=== PATIENT | female | born 1985 | race Caucasian/White ===

== ENCOUNTER 2017-10-02 13:16 | Emergency (ER) | payer OTHER, SELFPAY ==
[2017-10-02 13:17] VITALS: BP 138/75; PULSE 113; RESP 16; TEMP 36.8; O2SAT 98; BMI 40.4
[2017-10-02] MEDS: Ketorolac 30 MG/ML Syringe IV (14:07)
[2017-10-02] MEDS: DiphenhydrAMINE 50 MG/ML Syringe 25 MG IV (14:07)
[2017-10-02] MEDS: Metoclopramide 10 MG/2 ML Vial IV (14:07)
[2017-10-02 14:21] LABS: Absolute Lymphocyte Count 1.85 X10^3/ul (0.83-4.51); Absolute Neutrophil Count 9.7 X10^3/uL (2.0-7.7); Basophil# 0.03 X10^3/uL; Basophil% 0.2 % (0-1); Differential Indicated SCAN CRITERIA MET; Eosinophil# 0.03 X10^3/uL; Eosinophils% 0.2 % (0-5); Hematocrit 37.3 % (37-47); Hemoglobin 12.2 g/dl (12.0-15.0); Lymphocyte # 1.85 X10^3/ul (4.0); Lymphocyte % 15.2 % (19-41); Mean Corp Hgb Conc 32.7 g/gl (32-36); Mean Corpuscular Hgb 28.4 pg (27.0-32.0); Mean Corpuscular Volume 86.7 fL (81-99); Mean Platelet Vol. 10.1 fl (6.2-12.0); Monocyte# 0.56 X10^3/uL; Monocyte% 4.6 % (0-10); Neutrophil # 9.72 X10^3/uL (2.7-7.7); Neutrophil % 79.6 % (47-70); POSITIVE COUNT NO; POSITIVE DIFFERENTIAL NO; POSITIVE MORPHOLOGY YES; Platelet Count 285 K/mm3 (150-450); RBC Distribution Width CV 12.8 % (11.6-14.6); White Blood Count 12.2 K/mm3 (4.4-11.0)
[2017-10-02 14:29] LABS: Anion Gap 13 (5-15); BUN 9 mg/dL (7-18); BUN/Creat Ratio 14.3 RATIO (10-20); Calcium,Total 9.3 mg/dL (8.5-10.1); Chloride 101 mmol/L (98-107); Creatinine, Serum 0.63 mg/dL (0.55-1.02); EST Glomerular Filtration Rate 118 mL/min (>60); Est Glom Filt Rate - Afr Amer 143 mL/min (>60); Estimated Creatinine Clearance 108.01 ml/min; Glucose 84 mg/dL (74-106); Potassium 3.7 mmol/L (3.5-5.1); Sodium Level 134 mmol/L (136-145)
[2017-10-02] MEDS: 0.9% Normal Saline 1,000 ML 150 ML IV (14:37)
[2017-10-02 14:48] LABS: Pregnancy, Serum, hCG Quali. POSITIVE Negative (0-9 Nonpreg)
--- NOTE | 2017-10-02 15:02 | US_ITS ---
STUDY: FIRST TRIMESTER OBSTETRICAL ULTRASOUND REASON FOR EXAM: Female, 32 years old. Left lower quadrant abdominal pain in a patient. LMP: Unknown. TECHNIQUE: Transabdominal and Transvaginal PRIOR ULTRASOUND: Prior comparison studies are not available for review at this time. FINDINGS: There is visualization of a single gestational sac in a normal intrauterine position. The gestational sac shape is within normal limits. There is no demonstrated yolk sac. There is visualization of the placenta. Placenta is anterior. There is visualization of a live embryo. The crown-rump length (CRL) measures 4.4, indicating an estimated gestational age (EGA) of 11 weeks, 2 days. There is demonstrated cardiac activity with a heart rate of 174 bpm. The estimated gestation age (EGA) by US is 11 weeks, 2 days. The estimated date of delivery (BELL) by US is April 21 2018. The uterus measures 12.1 x 7.2 x 7.8 cm. There is no demonstrated uterine fibroid. The cervix is closed. The right ovary measures 4.0 x 2.0 x 3.0 cm. There is no right ovarian cyst. There is no visualized right adnexal mass or complex lesion. The left ovary measures 3.7 x 5.2 x 2.3 cm. There is no left ovarian cyst. There is no visualized left adnexal mass or complex lesion. There is no fluid in the cul de sac. US/Transvaginal w/Preg US IMPRESSION: Single living intrauterine gestation with estimated gestational age by size of 11 weeks 2 days. Electronically Signed: Shandra Green MD at 16:19 EDT , Service support ,
[2017-10-02 16:10] VITALS: BP 122/65
[2017-10-02 16:19] LABS: Bacteria 0 SEEN /hpf (None Seen)
[2017-10-02 16:20] LABS: Color, Urine Yellow (Yellow); Glucose, Dipstick Normal (Normal); Leukocyte Esterase-Dipstick 100 /ul (Negative); Nitrite-Dipstick Negative (Negative); Occult Blood-Urine 25 /ul (Negative); Protein-Dipstick 30 mg/dl (Negative); Specific Gravity, Urine 1.025 (1.002-1.030); Urine Clarity Cloudy (Clear); Urine Urobilinogen 8 mg/dl (Normal)
[2017-10-02 16:24] LABS: Urine Bilirubin Dipstick 1 mg/dL (Negative)
[2017-10-02 16:25] LABS: Ketone-Dipstick 150 mg/dl (Negative)
--- NOTE | 2017-10-02 16:25 | ED.RN ---
URINE KETONE 150, MD AWARE.
[2017-10-02 16:32] LABS: Mucous, Urine 2+ /hpf (<or=2+); Squamous Epithelial Cells - UA 0-5 SEEN /hpf (5-10)
[2017-10-02 16:33] LABS: Hyaline Cast 0-5 SEEN /lpf (0-5)
[2017-10-02 16:35] LABS: White Blood Cells 0-5 SEEN /hpf (0-5)
[2017-10-02 16:36] LABS: Red Blood Cells-Urine 0-5 SEEN /hpf (0-5)
--- NOTE | 2017-10-02 16:38 | ED.VISSUMM ---
- ER Visit Summary Date of Service: 10/02/17 Chief Complaint: Nausea, vomiting, fever. History of Present Illness: The patient is a 32 F who developed fever and sore throat last weekend. Sore throat resolved. Patient states she then developed blisters in the perineal area. For the past weeks she has had some intermittent vomiting but that worsened this morning. She is complaining of a headache since 4 PM yesterday afternoon at the base of her skull. Patient states she has not really eaten anything in the past 6 days. She is trying to push fluids and keep those down. Past history significant for migraines as a kid. She has had prior cholecystectomy. She is unsure of her last menstrual cycle stating that she has very irregular periods. Physical Examination: Blood pressure is 138/75, temperature 98.3, heart rate 113, respiratory rate 16, pulse ox 98% on room air. Head and neck examination reveals TMs to be clear bilaterally. Posterior pharynx exam is normal. Neck is supple with no lymphadenopathy. She has no meningismus. Heart is tachycardic and regular. Lung sounds are clear. Abdomen is soft with tenderness in epigastric region as well as the left lower quadrant. There is no guarding or rebound. Hypoactive bowel sounds are noted throughout. examination reveals ulcerations on the medial labia majora. I do not see any blister lesions. Test Results: CBC was a white count of 12.2 with 79% neutrophils. Chemistry studies are significant for sodium 134 and a bicarb of 20. Urinalysis returns 150 ketones but no sign of infection. Her test returned positive. Quant is then added and is found to be 70,813. Pelvic ultrasound is performed that shows a single live intrauterine 11 weeks 2 days. heart rate is noted at 174. Emergency Department Course and Treatment: HSV culture was sent from the labial lesions. Patient was initially treated with Toradol, Benadryl, Reglan, and IV fluids. Repeat evaluation she reported her headache was significantly improved, but on further repeat eval stated her headache was starting to return. She is given a dose of Tylenol. Patient was discussed with Dr. Tamez. Patient will be treated with a course of acyclovir. Should be given Zofran for home. Repeat vital signs include a heart rate of 84. Treatment Plan: [] Disposition: Discharge Impression: 1. Labial lesions with concern for herpes 2. First trimester 3. Cephalgia, improved 4. Vomiting, improved This note was generated with [employer] dictation software. It may contain incorrect words, spelling, and punctuation that were not noted in review of the chart prior to signing ED Disposition - Plan for ED Patient: Chief Complaint: Nausea/Vomiting/Diarrhea Referrals: Dewayne Lopez MD [Primary Care Provider] -
--- NOTE | 2017-10-02 16:41 | ED.DCSUM_ITS ---
- ER Visit Summary Date of Service: 10/02/17 Chief Complaint: Nausea, vomiting, fever. History of Present Illness: The patient is a 32 F who developed fever and sore throat last weekend. Sore throat resolved. Patient states she then developed blisters in the perineal area. For the past weeks she has had some intermittent vomiting but that worsened this morning. She is complaining of a headache since 4 PM yesterday afternoon at the base of her skull. Patient states she has not really eaten anything in the past 6 days. She is trying to push fluids and keep those down. Past history significant for migraines as a kid. She has had prior cholecystectomy. She is unsure of her last menstrual cycle stating that she has very irregular periods. Physical Examination: Blood pressure is 138/75, temperature 98.3, heart rate 113 , respiratory rate 16, pulse ox 98% on room air. Head and neck examination reveals TMs to be clear bilaterally. Posterior pharynx exam is normal. Neck is supple with no lymphadenopathy. She has no meningismus. Heart is tachycardic and regular. Lung sounds are clear. Abdomen is soft with tenderness in epigastric region as well as the left lower quadrant. There is no guarding or rebound. Hypoactive bowel sounds are noted throughout. examination reveals ulcerations on the medial labia majora. I do not see any blister lesions. Test Results: CBC was a white count of 12.2 with 79% neutrophils. Chemistry studies are significant for sodium 134 and a bicarb of 20. Urinalysis returns 150 ketones but no sign of infection. Her test returned positive. Quant is then added and is found to be 70,813. Pelvic ultrasound is performed that shows a single live intrauterine 11 weeks 2 days. heart rate is noted at 174. Emergency Department Course and Treatment: HSV culture was sent from the labial lesions. Patient was initially treated with Toradol, Benadryl, Reglan, and IV fluids. Repeat evaluation she reported her headache was significantly improved , but on further repeat eval stated her headache was starting to return. She is given a dose of Tylenol. Patient was discussed with Dr. Tamez. Patient will be treated with a course of acyclovir. Should be given Zofran for home. Repeat vital signs include a heart rate of 84. Treatment Plan: [] Disposition: Discharge Impression: 1. Labial lesions with concern for herpes 2. First trimester 3. Cephalgia, improved 4. Vomiting, improved This note was generated with [employer] dictation software. It may contain incorrect words, spelling, and punctuation that were not noted in review of the chart prior to signing ED Disposition - Plan for ED Patient: Chief Complaint: Nausea/Vomiting/Diarrhea Referrals: Dewayne Lopez MD [Primary Care Provider] -
--- NOTE | 2017-10-02 17:05 | ED.DEP ---
ED Disposition - Plan for ED Patient: Disposition: Home or Assisted Living Chief Complaint: Nausea/Vomiting/Diarrhea Instructions: ED Cephalgia Unspecified, Adapting to : First Trimester Prescriptions: Ondansetron [Zofran Odt] 4 mg PO Q8H PRN PRN #10 tablet PRN Reason: Nausea Acyclovir 400 mg PO TID #30 tablet Referrals: Dewayne Lopez MD [Primary Care Provider] - Kayla Arroyo MD [STAFF PHYSICIAN] - As soon as possible
[2017-10-02] MEDS: Acetaminophen 500 MG Tablet 1000 MG PO (17:19)
[2017-10-02 17:22] VITALS: BP 116/64
[2017-10-02] MEDS: Acyclovir 200 MG Capsule 400 MG PO (17:24)
[2017-10-06 20:06] LABS: HSV 1 By PCR Negative (Negative)
[2017-10-07 16:28] LABS: HSV 2 By PCR Positive (Negative)
== END 2017-10-02 17:27 | disposition home or self-care (01) ==
PROVIDERS: Emergency Provider Emergency Medicine; Family Provider Family Medicine; PCP Family Medicine
DX: O99.89 Other specified diseases and conditions complicating pregnancy, childbirth and the puerperium (principal); N90.89 Other specified noninflammatory disorders of vulva and perineum; R51 Headache; R11.10 Vomiting, unspecified; R50.9 Fever, unspecified; Z90.49 Acquired absence of other specified parts of digestive tract; Z3A.11 11 weeks gestation of pregnancy
CPT/HCPCS: 76817; 80048; 81001; 84702; 84703; 85025; 87529; 96361; 96374; 96375; 99285; J7030; J7040

== ENCOUNTER 2018-09-18 12:43 | Emergency (ER) | payer OTHER, SELFPAY ==
[2018-09-18 12:44] VITALS: BP 165/105; PULSE 68; RESP 16; TEMP 36.2; O2SAT 97; BMI 43.4
--- NOTE | 2018-09-18 13:08 | ED.VIS.BACK ---
History of Present Illness <CoxAlvaro - Last Filed: 09/18/18 13:20> Informant: Patient, Significant Other Onset: Yesterday Context: Gradual Onset Injury: - - no injury, woke up with pain Timing: Continuous Quality: - - cramping Location: Thoracic Current Severity: Moderate Maximum Severity: Severe Worsened by: improves with: Movement Relieved by: Remaining Still Narrative: 33-year-old female who denies any significant past medical history presents to the emergency department today with left-sided thoracic back pain. Patient woke up with it yesterday morning. It is a cramping pain. It is been continuous since yesterday. Is worse with movement. Does not radiate. No trauma falls or injury. No lightheadedness or dizziness. No chest pain or shortness of breath. No vomiting or diarrhea. No numbness tingling or weakness. She is not yet taking any medications [id number] for her symptoms. Prior similar symptoms: No Recent Illness/Hospitalization: No <Flavio Hsu - Last Filed: 09/18/18 13:34> Chief Complaint: Back Past Medical History <KennyAlvaro - Last Filed: 09/18/18 13:20> Prior records reviewed: Yes Past Medical History: None Lives: Spouse/ Significant Other Smoking Status: Never smoker <Agustin Hsuony - Last Filed: 09/18/18 13:34> - Allergies and Home Meds Allergies/Adverse Reactions: Allergies codeine Adverse Reaction (Verified 10/02/17 13:17) Nausea/Vom/Diarrhea Primary Care Physician: Dewayne Lopez MD [Primary Care Provider] - Review of Systems All systems negative except as indicated Musculoskeletal: Reports: Back pain <Flavio Hsu - Last Filed: 09/18/18 13:34> Physical Exam Vital Signs/Narrative: Vital Signs Temp Pulse Resp BP Pulse Ox 09/18/18 12:44 97.1 F L 68 16 165/105 H 97 <CoxAlvaro - Last Filed: 09/18/18 13:20> Vital Signs/Narrative: Vital Signs Temp Pulse Resp BP Pulse Ox 09/18/18 12:44 97.1 F L 68 16 165/105 H 97 Inital Vital Signs reviewed: Yes General: Well nourished, Well developed Head: Normocephalic, Atraumatic Eyes: Perrl, EOMI ENT: Moist mucous membranes Neck: Supple, Nontender Cardiovascular: Regular rate, Regular rhythm, No murmurs Respiratory: No distress, CTA bilaterally, Chest nontender Abdomen: Soft, Nontender, Nondistended, Normal bowel sounds, No masses Back: Normal Inspection, Paraspinal Tenderness, Negative SLR - Right, Negative SLR - Left. Negative for: Spinal tenderness Extremeties: Nontender, No edema Skin: Normal color, No rash Neuro: Alert, Oriented, Normal Strength, Normal Sensation, Normal Gait, Normal Reflexes Psychological: Normal affect <Flavio Hsu - Last Filed: 09/18/18 13:34> Diagnostic/Tx/Re-eval - Medical Decision Making 33-year-old female that I saw with our physician assistant chief train dispatcher. Patient has left lower parathoracic muscle pain. Is reproducible on exam. She has no other symptoms. No back history. Physical exam her vital signs are stable and afebrile. She is in no distress. Lungs are clear. Heart regular rhythm abdomen is nontender. Back exam spine is nontender. She has reproducible left lower parathoracic soft tissue tenderness consistent with muscle spasm. Patient will be placed on anti-inflammatories and a muscle relaxant. <Alvaro Cox - Last Filed: 09/18/18 13:20> ED Disposition <Alvaro Cox - Last Filed: 09/18/18 13:20> <Flavio Hsu - Last Filed: 09/18/18 13:34> - Plan for ED Patient: Disposition: Home or Assisted Living Diagnosis: Muscle spasm of back Instructions: ED Spasm Muscle Prescriptions: Naproxen [Naprosyn] 500 mg PO BID #20 tab Cyclobenzaprine HCl 10 mg PO TID PRN 3 Days #15 tab PRN Reason: Muscle Spasm Referrals: Dewayne Lopez MD [Primary Care Provider] -
--- NOTE | 2018-09-18 13:12 | ED.DCSUM_ITS ---
History of Present Illness <CoxAlvaro - Last Filed: 09/18/18 13:20> Informant: Patient, Significant Other Onset: Yesterday Context: Gradual Onset Injury: - - no injury, woke up with pain Timing: Continuous Quality: - - cramping Location: Thoracic Current Severity: Moderate Maximum Severity: Severe Worsened by: improves with: Movement Relieved by: Remaining Still Narrative: 33-year-old female who denies any significant past medical history presents to the emergency department today with left-sided thoracic back pain. Patient woke up with it yesterday morning. It is a cramping pain. It is been continuous since yesterday. Is worse with movement. Does not radiate. No trauma falls or injury. No lightheadedness or dizziness. No chest pain or shortness of breath. No vomiting or diarrhea. No numbness tingling or weakness. She is not yet giulia ing any medications [id number] for her symptoms. Prior similar symptoms: No Recent Illness/Hospitalization: No <Flavio Hsu - Last Filed: 09/18/18 13:34> Chief Complaint: Back Past Medical History <CoxAlvaro - Last Filed: 09/18/18 13:20> Prior records reviewed: Yes Past Medical History: None Lives: Spouse/ Significant Other Smoking Status: Never smoker <Agustin Hsuony - Last Filed: 09/18/18 13:34> - Allergies and Home Meds Allergies/Adverse Reactions: Allergies codeine Adverse Reaction (Verified 10/02/17 13:17) Nausea/Vom/Diarrhea Primary Care Physician: Dewayne Lopez MD [Primary Care Provider] - Review of Systems All systems negative except as indicated Musculoskeletal: Reports: Back pain <Agustin Hsuony - Last Filed: 09/18/18 13:34> Physical Exam Vital Signs/Narrative: Vital Signs Temp Pulse Resp BP Pulse Ox 09/18/18 12:44 97.1 F L 68 16 165/105 H 97 <KennyAlvaro - Last Filed: 09/18/18 13:20> Vital Signs/Narrative: Vital Signs Temp Pulse Resp BP Pulse Ox 09/18/18 12:44 97.1 F L 68 16 165/105 H 97 Inital Vital Signs reviewed: Yes General: Well nourished, Well developed Head: Normocephalic, Atraumatic Eyes: Perrl, EOMI ENT: Moist mucous membranes Neck: Supple, Nontender Cardiovascular: Regular rate, Regular rhythm, No murmurs Respiratory: No distress, CTA bilaterally, Chest nontender Abdomen: Soft, Nontender, Nondistended, Normal bowel sounds, No masses Back: Normal Inspection, Paraspinal Tenderness, Negative SLR - Right, Negative SLR - Left. Negative for: Spinal tenderness Extremeties: Nontender, No edema Skin: Normal color, No rash Neuro: Alert, Oriented, Normal Strength, Normal Sensation, Normal Gait, Normal Reflexes Psychological: Normal affect <Flavio Hsu - Last Filed: 09/18/18 13:34> Diagnostic/Tx/Re-eval - Medical Decision Making 33-year-old female that I saw with our physician pharmaceutical assistant. Patient has left lower parathoracic muscle pain. Is reproducible on exam. She has no other symptoms. No back history. Physical exam her vital signs are stable and afebrile. She is in no distress. Lungs are clear. Heart regular rhythm abdomen is nontender. Back exam spine is nontender. She has reproducible left lower parathoracic soft tissue tenderness consistent with muscle spasm. Patient will be placed on anti-inflammatories and a muscle relaxant. <Alvaro Cox - Last Filed: 09/18/18 13:20> ED Disposition <Alvaro Cox - Last Filed: 09/18/18 13:20> <Flavio Hsu - Last Filed: 09/18/18 13:34> - Plan for ED Patient: Disposition: Home or Assisted Living Diagnosis: Muscle spasm of back Instructions: ED Spasm Muscle Prescriptions: Naproxen [Naprosyn] 500 mg PO BID #20 tab Cyclobenzaprine HCl 10 mg PO TID PRN 3 Days #15 tab PRN Reason: Muscle Spasm Referrals: Dewayne Lopez MD [Primary Care Provider] -
[2018-09-18] MEDS: Ketorolac 30 MG/ML Syringe IM (13:14)
[2018-09-18] MEDS: Orphenadrine 60 MG/2 ML Ampul IM (13:14)
[2018-09-18 13:29] VITALS: PULSE 70; RESP 15; O2SAT 97
== END 2018-09-18 13:52 | disposition home or self-care (01) ==
LOC: ED 13:34
PROVIDERS: Emergency Provider Physician Assistant Medical; Family Provider Family Medicine; PCP Family Medicine
DX: M62.830 Muscle spasm of back (principal); M54.6 Pain in thoracic spine
CPT/HCPCS: 96372; 99283

== ENCOUNTER 2019-03-31 02:32 | Emergency (ER) | payer OTHER, SELFPAY ==
[2019-03-31 02:34] VITALS: BP 145/95; PULSE 89; RESP 18; TEMP 36.7; O2SAT 100; BMI 42.0
--- NOTE | 2019-03-31 02:56 | CT_ITS ---
HISTORY: Worst headache of her life. Photophobia. Nausea. Vomiting. TECHNIQUE: Multiple axial images were obtained of the brain without intravenous contrast. A radiation dose optimization technique was used for this scan. COMPARISON: September 15, 2011 FINDINGS: # of images incl. paperwork: 249 Visualized portions of the paranasal sinuses and mastoid air cells are free of disease. Brain volume is normal. Triplett-white differentiation is preserved. No hydrocephalus. No acute ischemia. No acute intracranial hemorrhage. CT/Brain/Head without Contrast IMPRESSION: Normal. ASPECT 10. Individualized dose optimization techniques were used for this CT. at 0356 Reported and signed by: Yared Fine MD Electronically Signed: Yared Fine MD at 3:55 EST Tel , Service support ,
--- NOTE | 2019-03-31 02:56 | ED.VIS.GEN ---
History of Present Illness Chief Complaint: Headache Informant: Patient Narrative: Stated she has a headache. She developed gradual onset headache this afternoon. It is a throbbing aching he pain in her bitemporal region. She tried ibuprofen Tylenol and Excedrin with minimal relief. She woke up this evening and had nausea. She has not had vomiting. She has positive photophobia. She had remote migraines as a child but none recently. No injury. No family history of subarachnoid hemorrhage. It was not thunderclap. Past Medical History - Allergies and Home Meds Allergies/Adverse Reactions: Allergies codeine Adverse Reaction (Verified 03/31/19 02:54) Nausea/Vom/Diarrhea Primary Care Physician: NOT,DEFINED [NON-STAFF] - Prior records reviewed: Yes Past Medical History: None Surgical History: noncontributory Lives: With Family Smoking Status: Never smoker Alcohol: None Drugs: None Review of Systems General: Denies: Chills, Fever, Sweats Eyes: Denies: Visual changes - bilaterally, Diplopia ENT: Denies: Rhinorrhea, Sore throat Cardiovascular: Denies: Chest pain, Palpitations Respiratory: Denies: Dyspnea, Cough, Dyspnea on exertion Gastrointestinal: Reports: Nausea. Denies: Abdominal pain, Vomiting, Diarrhea, Melena, Hematochezia Genitourinary: Denies: Dysuria, Hematuria, Frequency Musculoskeletal: Denies: Back pain, Extremity Pain Skin: Denies: Rash, Wounds Neurological: Reports: Headache. Denies: Weakness, Numbness Physical Exam Vital Signs/Narrative: Vital Signs Temp Pulse Resp BP Pulse Ox 03/31/19 02:34 98.0 F 89 18 145/95 H 100 General: Well nourished, Well developed, No Acute Distress Head: Normocephalic, Atraumatic Eyes: Perrl, EOMI ENT: Moist mucous membranes, No rhinorrhea Neck: Supple, Nontender Cardiovascular: Regular rate, Regular rhythm, No murmurs Respiratory: No distress, CTA bilaterally, Chest nontender Abdomen: Soft, Nontender, Nondistended, Normal bowel sounds Back: Nontender, Normal Inspection Extremities: Nontender, No edema Skin: Normal color, No rash Neurological: Alert, Oriented x3, Cranial nerves II-XII grossly intact, Normal Strength, Normal Sensation Psychological: Normal affect, Normal Mood Diagnostic/Tx/Re-eval - Medical Decision Making Given IV fluids, Compazine, Toradol, Benadryl. CT head obtained. CT head shows nothing acute. Patient felt much better after treatment. Slight headache persistent. Will be discharged with Imitrex to use if she wakes up with a headache tomorrow. We will follow-up as an outpatient. At this time I feel she has a migraine. I do not feel she has a subarachnoid hemorrhage. ED Disposition - Plan for ED Patient: Disposition: Home or Assisted Living Diagnosis: Migraine Instructions: ED, Migraine (Classical) Prescriptions: Sumatriptan Succinate [Imitrex] 50 - 100 mg PO X1 #10 tab Prescription Printed Referrals: Griffin Christine DO [NON CLINICAL AFFILIATE] -
[2019-03-31] MEDS: DiphenhydrAMINE 50 MG/ML Syringe 25 MG IV (03:06)
[2019-03-31] MEDS: Ketorolac 30 MG/ML Syringe IV (03:06)
[2019-03-31] MEDS: proCHLORPERazine 10 MG/2 ML Vial IV (03:06)
[2019-03-31] MEDS: 0.9% Normal Saline 1,000 ML 999 ML IV (03:07)
[2019-03-31 03:33] VITALS: RESP 16
[2019-03-31 04:11] VITALS: BP 132/71; PULSE 71; RESP 17; O2SAT 99
== END 2019-03-31 04:12 | disposition home or self-care (01) ==
PROVIDERS: Emergency Provider Emergency Medicine
DX: G43.909 Migraine, unspecified, not intractable, without status migrainosus (principal); Z88.5 Allergy status to narcotic agent
CPT/HCPCS: 70450; 96361; 96374; 96375; 99283; J7030; A4216

== ENCOUNTER 2020-10-23 07:00 | Inpatient (IN) | payer OTHER, SELFPAY ==
[2020-10-23] VITALS (49 sets, daily range): BP systolic 95–146; BP diastolic 52–97; PULSE 54–106; RESP 18; TEMP 35.7–37.2; O2SAT 92–100; BMI 43.0
[2020-10-23] MEDS: Lactated Ringers 1,000 ML 50 ML IV (07:43)
[2020-10-23] MEDS: Oxytocin 30 units/NS 500 ml 30 UNITS/500 ML IV.SOLN IV (07:50)
[2020-10-23 08:01] LABS: Absolute Lymphocyte Count 2.53 X10^3/uL (0.83-4.51); Absolute Neutrophil Count 6.9 X10^3/uL (2.0-7.7); Basophil# 0.04 X10^3/uL; Basophil% 0.4 % (0-1); Eosinophil# 0.09 X10^3/uL; Eosinophils% 0.9 % (0-5); Hematocrit 31.6 % (37-47); Hemoglobin 10.2 g/dL (12.0-15.0); Lymphocyte # 2.53 X10^3/ul (0.83-4.51); Lymphocyte % 24.3 % (19-41); Mean Corp Hgb Conc 32.3 g/dL (32-36); Mean Corpuscular Hgb 28.4 pg (27.0-32.0); Mean Platelet Vol. 11.4 fl (6.2-12.0); Monocyte# 0.81 X10^3/uL; Monocyte% 7.8 % (0-10); NRBC Flagged by Analyzer 0 % (0-5); Neutrophil # 6.89 X10^3/uL (2.7-7.7); Platelet Count 241 K/mm3 (150-450); RBC Distribution Width CV 14.5 % (11.6-14.6); RBC Distribution Width SD 46.2 fl (35.1-43.9); Red Blood Count 3.59 M/mm3 (4.2-5.4); White Blood Count 10.4 K/mm3 (4.4-11.0)
[2020-10-23] MEDS: Lactated Ringers 500 ML 999 ML IV (09:30)
[2020-10-23] MEDS: fentaNYL-bupivacaine (epidural) 100 ML BAG EPIDURAL (10:35)
[2020-10-23] MEDS: Ondansetron 4 MG/2 ML Vial IV (12:42)
--- NOTE | 2020-10-23 12:45 | PCM.HP.OB ---
HPI - General General Date of Admission: 10/23/20 Date of Service: 10/23/20 Chief Complaint: induction of labor HPI Narrative ISHAN PALACIO, is a 35 4 para 2-0-1-2 presents with EDC of 10/25/2020 at 40 weeks 5 days gestation for induction of labor. Patient's has been complicated to date by maternal obesity with BMI of greater than 40. She had 1 previous section for breech. She had some nausea and vomiting earlier in the . She is also had third trimester antepartum anemia. She has a history of abnormal Pap smears and migraine headaches. Maternal Data Information Final BELL: 10/25/20 Gestational age: [address] 5[address] [facility] Medical History (Updated 10/23/20 @ 12:[address] Kayla Arroyo MD) Headache Infertility Home Medications [id number] [] tab PO 10/23/20 [History Last Taken 10/22/20] sumatriptan succinate 50 - 100 mg PO X1 10/23/20 [History Last Taken 10/24/19] Allergy/AdvReac Type Severity Reaction Status Date / Time codeine AdvReac Nausea/Vom/ Verified 10/23/20 07:10 Diarrhea Surgical History (Updated 10/23/20 @ 12:[address] Kayla Arroyo MD) History of surgery Previous section Social History Smoking Status: Never smoker History Elective abortions Hx Para 2 Spontaneous abortions Hx # Term Pregnancies Ectopic pregnancies Hx # Pregnancies Multiple births # of living children ROS Constitutional Constitutional: Denies fatigue, fever(s) or malaise Eyes Eyes: Denies change in vision ENT HEENT: Denies dizziness or headache(s) Cardiovascular Cardiovascular: Denies chest pain, dyspnea or lightheadedness Respiratory/Chest Respiratory/Chest: Denies cough or dyspnea Gastrointestinal Gastrointestinal: Denies change in bowel habits Genitourinary Genitourinary: Denies burning urination or genital lesions Integumentary Integumentary: Denies rash Neurologic Neurologic: Denies confusion, dizziness, headache(s), numbness or weakness Vital Signs Vital Signs Vital Signs: 10/23/20 07:50 10/23/20 08:15 10/23/20 08:17 Temperature 98.2 F 98.2 F Temperature Source Tympanic Pulse Rate 67 Blood Pressure 113/75 BP Systolic 113 BP Diastolic 75 Pulse Ox 10/23/20 09:32 10/23/20 09:54 10/23/20 09:59 Temperature 96.3 F L Temperature Source Pulse Rate 61 77 64 Blood Pressure 120/79 139/79 H 126/77 H BP Systolic 120 139 126 BP Diastolic 79 79 77 Pulse Ox 10/23/20 10:04 10/23/20 10:08 10/23/20 10:09 Temperature Temperature Source Pulse Rate 64 65 59 L Blood Pressure 126/79 H 132/84 H BP Systolic 126 132 BP Diastolic 79 84 Pulse Ox 99 10/23/20 10:10 10/23/20 10:13 10/23/20 10:16 Temperature Temperature Source Pulse Rate 74 63 77 Blood Pressure 146/97 H BP Systolic 146 BP Diastolic 97 Pulse Ox 92 99 10/23/20 10:18 10/23/20 10:19 10/23/20 10:23 Temperature Temperature Source Pulse Rate 61 58 L 67 Blood Pressure 133/86 H BP Systolic 133 BP Diastolic 86 Pulse Ox 99 100 10/23/20 10:24 10/23/20 10:28 10/23/20 10:29 Temperature Temperature Source Pulse Rate 61 74 Blood Pressure 128/86 H 127/79 H BP Systolic 128 127 BP Diastolic 86 79 Pulse Ox 99 10/23/20 10:33 10/23/20 10:34 10/23/20 10:38 Temperature Temperature Source Pulse Rate 83 71 103 H Blood Pressure 113/65 BP Systolic 113 BP Diastolic 65 Pulse Ox 99 99 10/23/20 10:39 10/23/20 10:43 10/23/20 10:44 Temperature Temperature Source Pulse Rate 106 H 97 95 Blood Pressure 104/56 L 96/53 L BP Systolic 104 96 BP Diastolic 56 53 Pulse Ox 99 10/23/20 11:17 10/23/20 11:27 10/23/20 11:29 Temperature 96.8 F L Temperature Source Pulse Rate 75 75 Blood Pressure 119/69 BP Systolic 119 BP Diastolic 69 Pulse Ox 100 98 10/23/20 12:30 Temperature Temperature Source Pulse Rate 70 Blood Pressure 95/52 L BP Systolic 95 BP Diastolic 52 Pulse Ox Weight Weight: 110.223 kg Body Mass Index (BMI) 43.0 Physical Exam Const alert and no apparent distress General Appearance: cooperative HEENT normocephalic Resp normal respiratory effort Cardio regular rate GI soft to palpation GI Narrative: gravid, nontender, appropriate for gestational age Extremity no calf tenderness General Extremity: edema Skin no wounds Rashes: No rashes noted Psych activity/motor behavior normal Labs Labs Labs: Blood Type A POSITIVE Antibody Screen NEGATIVE Hct 31.6 % (37-47) L Hgb 10.2 g/dL (12.0-15.0) L Obstetrics US Rhogam given: No Assessment & Plan (1) 39 weeks gestation of : PLAN: Risk benefits and alternatives to induction of labor him discussed with patient, questions were answered to her satisfaction she desires to proceed. She declines LARC after delivery. Estimated weight is less than 4500 g, and pelvis is clinically adequate to expect vaginal delivery. Pitocin and artificial rupture membranes for induction. Recommend IUPC and epidural due to high risk labor because of history of previous section. Patient would like elective sterilization if section is necessary. If section is not necessary, will discuss option of doing this day #0 or 1 depending on staffing availability and OR schedule and acutiy. (2) Maternal obesity syndrome in third trimester: (3) Adult BMI 40.0-44.9 kg/sq m: (4) Previous delivery affecting : (5) Supervision of other high risk pregnancies, third trimester: (6) Encounter for induction of labor:
[2020-10-23] MEDS: Lactated Ringers 1,000 ML 200 ML IV (14:18)
[2020-10-23] MEDS: Oxytocin 30 units/NS 500 ml 30 UNITS/500 ML IV.SOLN 334 UNITS IV (15:00)
--- NOTE | 2020-10-23 15:14 | EX.PCM.OBRPT ---
Assessment & Plan (1) Vaginal after delivery: (2) 39 weeks gestation of : (3) Single live : Maternal Data Information Final BELL: 10/25/20 Gestational age: 39 5/7 Vaginal Delivery Maternal Presentation Maternal Presentation: Medically Indicated Induction Type of Induction: Pitocin and Amniotomy Medical Reason for Induction: - (BMI > 40) Operative Information Date of Procedure: 10/23/20 Pre-Operative Diagnosis: labor, previous c/s Post-Operative Diagnosis: same Surgery / Procedure Performed: Type of Anesthesia: Epidural Special Medications: none Drain: Jon to straight drain Estimated Blood Loss: 200 Time of Delivery: 14:57 Findings Description of Procedure: A vigorous male infant was delivered EMMANUEL over an intact perineum. The remainder the infant was delivered with maternal pushing and gentle traction only in less than 15 seconds. The Pitocin infusion was initiated for active management of the third stage. The cord was clamped and cut after 1 minute. The infant was attended to by the waiting nursing staff. The placenta was delivered spontaneously and intact. The cervix and vagina were intact. Sponge and needle counts were correct. A vaginal sweep was completed by me. Presentation: EMMANUEL Amniotic Membrane Rupture Type: Artificial Amniotic Fluid Description: Clear Placental Delivery Description: Spontaneous Placenta Disposition: [facility] Cord Vessel Description: 3 Vessels Cord Entanglement: None Nuchal Cord Compression: Without compression Infant A Gender: Male (1 minute): 9 (5 minute): 9 Delayed Cord Clamping: Yes Admit VTE Documentation VTE Present on Admission: No VTE Pharm Prophylaxis Ordered: No Reason Prophylaxis Not Ordered: Procedure Not Indicated
[2020-10-24 00:01] VITALS: BP 112/64; PULSE 70; RESP 16; TEMP 36.4
[2020-10-24] MEDS: Ibuprofen 600 MG Tablet PO ×2 (02:52→16:33)
[2020-10-24 04:51] VITALS: BP 102/56; PULSE 68; RESP 18; TEMP 36.1
--- NOTE | 2020-10-24 07:26 | PCM.PN.OB ---
Subjective Subjective patient seen at bedside, doing well. Patient reports good pain control. lochia mild. Objective Data Objective Data Vital Signs: Vital Signs Temp Pulse Resp BP Pulse Ox 97 F L 68 18 102/56 L 98 10/24/20 04:51 10/24/20 04:51 10/24/20 04:51 10/24/20 04:51 10/23/20 12:45 Oxygen Delivery Method Room Air Weight: 110.223 kg Body Mass Index (BMI) 43.0 Intake & Output: Intake and Output for Last 24 Hours 10/22/20 10/23/20 10/24/20 23:59 23:59 23:59 Intake Total 2519.44 / 2519.44 Output Total 3700 / 3700 Balance -1180.56 / -1180.56 Lab / Micro Data Result Diagrams: 10/23/20 07:43 Labs: Laboratory Results - last 24 hr 10/23/20 07:43: WBC 10.4, RBC 3.59 L, Hgb 10.2 L, Hct 31.6 L, MCV 88.0, MCH 28.4, MCHC 32.3, RDW Std Deviation 46.2 H, RDW Coeff of Tonya 14.5, Plt Count 241, MPV 11.4, Immature Gran % (Auto) 0.600, Neut % (Auto) 66.0, Lymph % (Auto) 24.3, [place] % (Auto) 7.8, Eos % (Auto) 0.9, Baso % (Auto) 0.4, Absolute Neuts (auto) 6.9, Absolute Lymphs (auto) 2.53, Nucleated RBC % 0 10/23/20 07:43: Blood Type A POSITIVE, Antibody Screen NEGATIVE Physical Exam Narrative fundus firm Const alert and oriented x3 General Appearance: cooperative HEENT normocephalic Neck General: normal visual inspection GI soft to palpation and non-distended GI Narrative: Fundus firm Extremity normal to inspection and no calf tenderness Skin no rashes or lesions noted Neuro oriented x3 and CN's II-XII intact bilaterally Psych mental status grossly normal Assessment & Plan (1) Vaginal after delivery: PLAN: PPD# 1 , Doing well Routine care pain mgmt ambulation dc home
--- NOTE | 2020-10-24 07:27 | PCM.DC ---
Discharge Instructions Diet Discharge Diet: No restrictions Activity May resume sexual activity in: 6-8 weeks Dressing / Incision Call your doctor if you observe: Fever of 101 or Higher, Inability to urinate, Using more than 1 pad per hour and Uncontrolled pain Follow Up Care Please Follow Up With: Kiley Odonnell MD When: 1-2 weeks post and again at 6 weeks post . [phone] Test Results: Test results from this visit will be discussed in further detail at your follow-up appointment, if applicable. Discharge Plan Admission Admit Date/Time: 10/23/20 07:00 Attending Provider: Kayla Arroyo Primary Care Provider: Care Physician,No Primary Instructions Forms: Information Discharge Orders/Prescriptions Prescriptions: No Action 1 mg Tablet PO RF: 0 sumatriptan succinate 50 MG tablet 50 - 100 mg PO X1 RF: 0 Referrals / Follow Up: Care Physician,No Primary [Primary Care Provider] - Disposition Disposition (needs filled in before D/C Order can be placed): Home, Self Care
[2020-10-24 08:30] VITALS: BP 96/54; PULSE 62; RESP 14; TEMP 36.7
[2020-10-24 12:45] VITALS: BP 95/68; PULSE 62; RESP 14; TEMP 36.3
[2020-10-24 17:25] VITALS: BP 108/69; PULSE 64; RESP 14; TEMP 36.1
== END 2020-10-24 17:50 | disposition home or self-care (01) | DRG 807 ==
PROVIDERS: Admitting Provider Obstetrics & Gynecology; Referring Provider Obstetrics & Gynecology; Visit Provider Obstetrics & Gynecology
DX: O34.219 Maternal care for unspecified type scar from previous cesarean delivery (principal); O69.81X0 Labor and delivery complicated by cord around neck, without compression, not applicable or unspecified; O99.02 Anemia complicating childbirth; D64.9 Anemia, unspecified; O99.214 Obesity complicating childbirth; E66.9 Obesity, unspecified; Z3A.39 39 weeks gestation of pregnancy; Z37.0 Single live birth
CPT/HCPCS: 59025; 59050; 85025; 86850; 86900; 86901; 99218; J7120; G0378; J2405

== ENCOUNTER 2020-11-21 12:22 | Observation (INO) | payer OTHER, SELFPAY ==
[2020-10-23 07:07] VITALS: BMI 43.0
--- NOTE | 2020-11-14 16:07 | PCM.HP.BLA ---
History and Physical Date of Admission: 11/21/20 HPI: The patient is a 35 year old female presenting for pre-operative visit. She is scheduled for laparoscopic bilateral salpingectomy, for sterilization on 11/21/2020. Procedure discussed along with risks, benefits and complications. Other alternatives discussed for management. Consent form signed? Yes. ? ? PAST MEDICAL HISTORY PAST MEDICAL HISTORY Diagnosis Date ? Abdominal pain, epigastric ? ? Abnormal glandular Papanicolaou smear of cervix 09/23/2006 ? Abn. Pap smear (cervix) ? Acute gastritis without mention of hemorrhage ? ? Anemia in 06/04/2014 ? Gastric ulcer, unspecified as acute or chronic, without mention of hemorrhage, perforation, or obstruction 2008 ? Infertility, female ? ? ? PAST SURGICAL HISTORY PAST SURGICAL HISTORY Procedure Laterality Date ? DELIVERY ONLY ? 08/24/14 ? , low transverse ? COLPOSCOPY (VAGINOSCOPY) ? 11/08/2006, 2008 ? Colposcopy ? EGD W/O [facility] SPECIMEN W/BX ? 8209 ? Gastritis, gastric ulcers ? EXTRACTION, ERUPTED TOOTH OR EXPOSED ROOT (ELEVATION AND/OR FORCEPS REMOVAL) ? 2003 ? wisdom teeth ? LAPAROSCOPIC CHOLEYCYSTECTOMY ? 08/23/2006 ? with intraoperative cholangiogram ? REMOVAL OF TONSILS,<12 Y/O ? 2003 ? Tonsillectomy ? ? ? CURRENT MEDICATIONS Current Outpatient Medications Medication Sig Dispense Refill ? ferrous sulfate 325 mg (65 mg iron) tablet Take 1 tablet by mouth daily with breakfast. ? ? ? ondansetron (ZOFRAN) 4 mg tablet Take 1 tablet by mouth every 8 hours as needed. 30 tablet 3 ? docusate sodium (COLACE ORAL) Take by mouth. ? ? ? PNV NO.95/FERROUS FUM/FOLIC AC ( ORAL) Take by mouth. ? ? ? No current facility-administered medications for this visit. ? ? ALLERGIES: Codeine ? PERSONAL HISTORY: SOCIAL HISTORY Social History ? Tobacco Use ? Smoking status: Never Smoker ? Smokeless tobacco: Never Used Vaping Use ? Vaping Use: Never used Substance Use Topics ? Alcohol use: No ? Drug use: No ? FAMILY HISTORY: FAMILY HISTORY FAMILY HISTORY Problem Relation Age of Onset ? Hypertension Mother ? ? Heart Attack Father ? ? age 65 ? Coronary Artery Disease Father ? ? other (Brain Aneurysm) Father ? ? Hypertension Brother ? ? Hypertension Brother ? ? Cancer Maternal Grandmother ? ? RENAL CANCER ? Heart Maternal Grandfather ? ? CT ? Stroke Maternal Grandfather ? ? Diabetes Paternal Grandfather ? ? ? REVIEW OF SYMPTOMS: GENERAL: denies fevers or chills ENDOCRINOLOGY: has not been on steroids Cardiology : denies palpitations or chest pain Respiratory: denies SOB or cough Hematology: denies history of prolonged bleeding or easy bruising or VTE Allergy: Denies history of personal or family history of allergy to anesthesia ? PHYSICAL EXAMINATION: ? VITALS: Height 5' 3 (1.6 m), weight 231 lb (104.8 kg), last menstrual period 01/15/2020, currently . ? GENERAL: The patient is well nourished, well hydrated in no acute distress. , The patient is oriented to time, place, and person. NECK: Supple. No lynphadenopathy, normal thyroid, no thyromegaly. LUNGS: Clear to auscultation bilaterally. no wheezes, rhonchi or rales HEART: Regular rate and rhythm, Normal heart sounds and No murmurs or gallops ? IMPRESSION: sterilization request ? PLAN: The risks/benefits/alternatives and personal involved for the planned laparoscopic bilateral salpingectomy were reviewed with the patient. Her questions were answered to her satisfaction and she desires to proceed. Consent was signed. I reviewed with her postop instructions and expectations. ? ? I have reviewed and updated past medical and surgical history, medications and allergies This H&P was completed in my office on 11/13/2020. Assessment & Plan Assessment/Plan (1) Sterilization:
[2020-11-21] VITALS (16 sets, daily range): BP systolic 104–129; BP diastolic 65–82; PULSE 32–49; RESP 12–16; TEMP 36–36.8; O2SAT 92–100; BMI 42.0; BMI 42.7
[2020-11-21] MEDS: Lactated Ringers 1,000 ML 100 ML IV (09:15)
[2020-11-21 09:38] LABS: Internal QC Validated? YES +Cl - CLEAR BKGD; Pregnancy, Urine Negative Negative
[2020-11-21] MEDS: Acetaminophen 500 MG Tablet 1000 MG PO (09:40)
[2020-11-21] MEDS: Celecoxib 200 MG Capsule 400 MG PO (09:40)
[2020-11-21 09:41] LABS: Hematocrit 37.1 % (37-47); Hemoglobin 11.4 g/dL (12.0-15.0); Mean Corp Hgb Conc 30.7 g/dL (32-36); Mean Corpuscular Hgb 27.5 pg (27.0-32.0); Mean Corpuscular Volume 89.4 fL (81-99); Mean Platelet Vol. 10.6 fl (6.2-12.0); Platelet Count 252 K/mm3 (150-450); RBC Distribution Width CV 13.7 % (11.6-14.6); RBC Distribution Width SD 44.5 fl (35.1-43.9); Red Blood Count 4.15 M/mm3 (4.2-5.4); White Blood Count 8.5 K/mm3 (4.4-11.0)
[2020-11-21] MEDS: Bupivacaine Mpf 0.5% 30 ML VIAL (10:25)
--- NOTE | 2020-11-21 10:30 | FALS_PTH ---
PATIENT: ISHAN PALACIO LOC: PCU U#:[id number] AGE/SX: 35/F ROOM: [facility] RE11/21/[address]: Dr. Kayla Arroyo MD : 1985 BED: 1 DIS: 11/22/2020 SPEC #: [id number] RECD: 11/21/20 11:39 STATUS: SUNITHA REAmanda #: [id number] JARED: 11/21/20 10:[address]: Kayla Arroyo DEPT: SURGICAL PATHOLOGY RECD BY: Rhona Galvan ENTERED: 11/21/20 12:49 SP TYPE: FALL TUBES OTHR DR: No Primary Care Phys Tissues: Fallopian tube Procedures: Surgery Specimen Level II HEADER OPERATION: Laparoscopic salpingectomy PRE-OP DIAGNOSIS: Sterilization TISSUE SUBMITTED: Bilateral fallopian tubes MICROSCOPIC DIAGNOSIS Bilateral fallopian tubes, salpingectomy: Bilateral fallopian tubes, no pathologic diagnosis. JESSICA:franky 11/22/2020 MICROSCOPIC DESCRIPTION Slides are reviewed. GROSS DESCRIPTION Received in fixative is one container labeled with the patient's name and designated bilateral fallopian tubes. The specimen consists of bilateral fallopian tubes including fimbrial ends. The fallopian tubes are not identified as right or left. One fallopian tube measures 5 cm in length and 0.5 cm in diameter. The second fallopian tube is received in two pieces and measures 4.5 cm in length and 0.5 cm in diameter. Sections reveal unremarkable cut surfaces. Logging Operations Inspector sections are submitted in two cassettes as follows: 1 - fallopian tube received as one piece and intact fallopian tube, 2 - fallopian tube received in two pieces. / SJ:rg 11/21/20 TC:4 [facility]: [id number] x2
--- NOTE | 2020-11-21 10:42 | OP.PCM_ITS ---
Problems Associated Problem List Diagnoses (1) Sterilization: Report of Operation Date of Procedure: 11/21/20 Pre-Operative Diagnosis: sterilization request Post-Operative Diagnosis: same Surgery/Procedure Performed:: Laparoscopic bilateral salpingectomy Description of Surgical Findings:: normal uterus, tubes and ovaries Surgeon: Kayla Arroyo simulation specialist: None Type of Anesthesia: General Anesthesiologist: Olivia Bello Special Medications: none Specimen's removed: bilateral fallopian tubes Drains: none Estimated Blood Loss (mL): 10 Fluids Replaced: 600 mL Description of Procedure: The patient was taken to the operating room where she was prepped and draped in the dorsolithotomy position. A weighted speculum was placed in the vagina and the anterior lip of the cervix was grasped with a tenaculum. The Alysia uterine manipulator was placed and the remainder of the instruments were removed from the vagina. Attention was turned to the abdomen. All port sites were infiltrated with 0.5% Marcaine before skin incisions were made. A 5 mm [intraumbilical] incision was made. The anterior abdominal wall was tented up with 2 towel clamps while a 5 mm blade less trocar and sleeve were [directly inserted]. Intraperitoneal placement was confirmed with the laparoscope. The pneumoperitoneum was created and the underlying abdominal contents were intact. The patient was placed in Trendelenburg. Right and left lower quadrant ports were placed under direct visualization lateral to the inferior epigastric vessels. The bowel was swept away and the above findings were noted. The LigaSure device was used to clamp seal and transect the antimesenteric portions of the right tube to the cornual insertion of the uterus. The tube was amputated from the uterus and the pedicles were all confirmed to be hemostatic. The same procedure was performed on the contralateral side. The specimens were brought out through a 5 mm port. The pedicles were again examined and found to be hemostatic. The lateral ports were removed under direct visualization and no active bleeding was noted. The pneumoperitoneum was released. The skin incisions were closed with Monocryl suture in a subcuticular fashion and skin glue. The vaginal instruments were removed and the vaginal sweep was completed by me. The entire procedure was performed by me with assistance. All sponge and needle counts were correct and the patient was taken to the recovery room in stable condition. Grafts/Implants Used: none Procedure Start Time: 10:25 Procedure Stop Time: 10:41 Complications none Admit VTE Documentation VTE Present on Admission: No VTE Mechan Device Prophylaxis: SCD's VTE Pharm Prophylaxis ordered?: No Reason prophylaxis not ordered:: Procedure Not Indicated
--- NOTE | 2020-11-21 10:59 | PCM.DC ---
Discharge Instructions Diet Discharge Diet: No restrictions Activity May resume sexual activity in: 1 week Dressing / Incision Call your doctor if your incision/area has: Sudden Increased Bleeding and Foul Smelling Discharge Call your doctor if you observe: Fever of 101 or Higher Cleanse incision/area with: Soap & Water (Your incisions have skin glue and it can get wet. Leave on until it falls off) Follow Up Care Please Follow Up With: Kayla Arroyo MD When: In my office or virtual visit in 1-2 weeks or as needed Test Results: Test results from this visit will be discussed in further detail at your follow-up appointment, if applicable. Discharge Plan Admission Primary Reason for Your Visit: tubal sterilization Attending Provider: Kayla Arroyo Primary Care Provider: Care Physician,No Primary Instructions Patient Instructions: Laparoscopic Tubal Sterilization Discharge Orders/Prescriptions Prescriptions: No Action 1 mg Tablet 1 tab PO DAILY RF: 0 sertraline [Zoloft] 50 mg Tablet 50 mg PO DAILY RF: 0 Referrals / Follow Up: Care Physician,No Primary [Primary Care Provider] - Disposition Disposition (needs filled in before D/C Order can be placed): Home, Self Care
--- NOTE | 2020-11-21 11:00 | EKG12_ITS ---
Test Reason : SHANE POST-OP Blood Pressure : / mmHG Vent. Rate : 031 BPM Atrial Rate : 031 BPM P-R Int : 162 ms QRS Dur : 088 ms QT Int : 516 ms P-R-T Axes : 034 001 021 degrees QTc Int : 370 ms Marked sinus bradycardia Abnormal ECG Confirmed by DEBRA VELEZ, SABINA ([id number]), purchasing expeditor ISHAN SMART ([id number]) on 11/27/2020 8:58:11 AM Referred By: Kayla Arroyo Confirmed By:SABINA RICHARDSON MD
--- NOTE | 2020-11-21 11:50 | ECHOD_ITS ---
Reason For Study: BRADYCARDIA Procedure This was a 2D Doppler, Color Flow transthoracic echocardiogram. The study was technically difficult. Deferred Definity due to patient is breast feeding. Exam performed portable in patient room. Left Ventricle Normal left ventricle. The estimated ejection fraction is EF 55 %. Right Ventricle Normal right ventricle. Normal systolic function. Atria Normal left atrium. Normal right atrium. Mitral Valve The mitral valve is structurally normal. No prolapse or stenosis seen. Tricuspid Valve Normal tricuspid valve. Aortic Valve Normal aortic valve. Pulmonic Valve The pulmonic valve is not well visualized. Great Vessels Normal aortic root. Pericardium/Pleural No pericardial effusion. MMode/2D Measurements & Calculations LVIDd: 5.4 cm IVSd: 0.87 cm Ao root diam: 3.2 cm LVIDs: 3.3 cm LVPWd: 1.0 cm RVDd: 3.8 cm FS: 37.8 % LAV(MOD-bp): 86.2 ml LA A4 area: 26.0 cm2 LA dimension(2D): 3.9 cm LAV(MOD-bp) Indexed: 41.5 ml/m2 LAV(MOD-sp2): 82.5 ml LAV(MOD-sp4): 84.4 ml RA A4 area: 12.7 cm2 Time Measurements MV dec time: 0.18 sec Doppler Measurements & Calculations MV E max mikael: 110.6 cm/sec Lat Peak E' Mikael: 17.3 cm/sec Med Peak E' Mikael: 10.9 cm/sec MV A max mikael: 65.2 cm/sec E/E' lat: 6.4 E/E' med: 10.1 MV E/A: 1.7 Ao V2 max: 147.1 cm/sec LV V1 max: 102.6 cm/sec PA V2 max: 111.5 cm/sec Ao max P.7 mmHg LV V1 max P.2 mmHg TR max mikael: 256.7 cm/sec TR max P.4 mmHg ECHO/Echo Complete Interpretation Summary The estimated ejection fraction is EF 55 %. Normal LV systolic function Ordering Physician: Livia Feliz Referring Physician: Kayla Arroyo Performed By: Margarita Mohamud RDCS, RVT
--- NOTE | 2020-11-21 12:15 | PCM.PN.BLA ---
Progress Note Patient had some bradycardia cardia Intra-Op and postoperatively. An EKG was done. Anesthesia recommended cardiology consult. Cardiology consult was ordered. Cardiology recommended evaluation overnight and echocardiogram tomorrow. Patient is in agreement with plan. I will enter admission orders. Management of cardiac issues per cardiology. Likely discharge home tomorrow after echocardiogram.
--- NOTE | 2020-11-21 12:32 | SUR.PHASEI ---
DR SIFUENTES, CARDIOLOGY, AND DR KELLER, ANESTHESIA, CONFERRING AT BEDSIDE. PATIENT HAS BEEN ASYMPTOMATIC WITH HER MARKED BRADYCARDIA, DENIES SOB, NAUSEA, DIZZINESS. DR SIFUENTES WANTS PATIENT ADMITTED FOR OBSERVATION AND 2D ECHO, NOTIFIED DR RG. WILL UPDATE PATIENT FAMILY.
[2020-11-21] MEDS: Lactated Ringers 1,000 ML 75 ML IV (12:54)
--- NOTE | 2020-11-21 13:22 | CON.PCM.CA_ITS ---
Documented by User: Maeve BALL PA 11/21/20 13:36 Assessment & Plan Assessment/Plan (1) Sinus bradycardia: PLAN: * recommend that pt be admitted for observation over night to mon itor her overall rhythm * will obtain a echo * at d/c would like to obtain a 30 day monitor * once pt is d/c home will follow up with her on an OP basis HPI Consult Data Date of Consult: 11/21/20 HPI Narrative HPI Narrative: ISHAN PALACIO, is a 35 F that we were asked to see for sinus bradycardia. pt underwent a bilateral tubal ligation. Pre admission she was noted have Sinus laura with a HR of 49. During her surgery she had progressive bradycardia with HR dropping into the 30's. There is a note that she was given atropine with surgery with no improvement Pt is 4 weeks post pardum. She notes that her HR at home is on the lower end of normal. She does not have any chest pain/heaviness. She does not have any worsening SOB. Energy is okay. She does not have any lightheadedness/dizziness/near syncope/syncope. [facility] Medical History (Updated 11/21/20 @ 13:33 by Maeve BALL, PA) Depression Headache Infertility Migraine headache Non-smoker Sinus bradycardia Wears glasses Home Medications [id number] [] 1 tab PO DAILY 10/23/20 [History Last Taken 10/22/20] sertraline [Zoloft] 50 mg PO DAILY 11/18/20 [History Last Taken 11/21/20] Allergy/AdvReac Type Severity Reaction Status Date / Time codeine AdvReac Nausea/Vom/ Verified 11/21/20 09:51 Diarrhea Surgical History Hx laparoscopic cholecystectomy Hx of tonsillectomy Previous section Social History Smoking Status: Never smoker ROS ROS Narrative See HPI Constitutional Constitutional: Reports systems reviewed and no addt'l complaints, except as documented Eyes Eyes: Reports systems reviewed and no addt'l complaints, except as documented ENT HEENT: Reports systems reviewed and no addt'l complaints, except as documented Cardiovascular Cardiovascular: Reports systems reviewed and no addt'l complaints, except as documented Respiratory/Chest Respiratory/Chest: Reports systems reviewed and no addt'l complaints, except as documented Gastrointestinal Gastrointestinal: Reports systems reviewed and no addt'l complaints, except as documented Musculoskeletal Musculoskeletal: Reports systems reviewed and no addt'l complaints, except as documented Neurologic Neurologic: Reports systems reviewed and no addt'l complaints, except as documented Physical Exam Const alert, oriented x3, no apparent distress, average body habitus and healthy appearing Eyes PERRL, EOMs intact bilaterally, conjunctivae normal, no scleral icterus and normal visual ruiz by confrontation Neck full ROM, no lymphadenopathy, supple and no JVD Resp normal respiratory effort, no use of accessory muscles and clear to auscultation bilaterally Cardio regular rhythm, S1 normal heart sound, S2 normal heart sound, no murmurs, no rub, no gallops, no clicks, no JVD and peripheral pulses 2+ throughout Rate: bradycardia GI normal to inspection, nondistended, normoactive bowel sounds, soft to palpation, non-tender and non-distended Neuro oriented x3, CN's II-XII intact bilaterally, moves all extremities, no focal motor deficits and no sensory deficits noted Objective Data Vital Signs: Vital Signs Temp Pulse Resp BP Pulse Ox 96.8 F L 48 L 16 118/73 96 11/21/20 12:36 11/21/20 12:36 11/21/20 12:36 11/21/20 12:36 11/21/20 12:36 Oxygen Flow Rate (L/min) 2 Oxygen Delivery Method Nasal Cannula Weight: 237 lb 10.533 oz Body Mass Index (BMI) 42.0 Intake & Output: Intake and Output for Last 24 Hours 11/19/20 11/20/20 11/21/20 23:59 23:59 23:59 Intake Total 1000 / 1000 Output Total 75 / 75 Balance 925 / 925 Lab / Micro Data Result Diagrams: 11/21/20 09:36 Labs: Laboratory Results - last 24 hr 11/21/20 09:24: Urine Test Negative 11/21/20 09:36: WBC 8.5, RBC 4.15 L, Hgb 11.4 L, Hct 37.1, MCV 89.4, MCH 27.5, MCHC 30.7 L, RDW Std Deviation 44.5 H, RDW Coeff of Tonya 13.7, Plt Count 252, MPV 10.6 Cardiology Labs/Tests 11/21/20 09:36: WBC 8.5, RBC 4.15 L, Hgb 11.4 L, Hct 37.1, MCV 89.4, MCH 27.5, MCHC 30.7 L, Plt Count 252, MPV 10.6 EKG: Marked sinus laura witha HR of 31 Documented by User: Dr. Livia Feliz MD 11/21/20 13:48 Assessment & Plan Assessment/Plan (1) Sinus bradycardia: PLAN: This 35-year-old patient was seen in the PACU, consultation by the [facility] and the anesthesiologist for sinus bradycardia with a heart rate of 30 she been stable hemodynamically Patient underwent tubal ligation today she had no symptoms of dizziness no lightheadedness She does not have any underlying cardiac problem prior to this elective surgery. I independently examined this patient, reviewed the EKG, reviewed the current lab evaluation as well as her current medication during anesthesia. Recommendation plan 1. Noted her heart rate improved to 46 bpm her blood pressure systolic blood pressure has been above 100 maintaining a mean blood pressure above 60 mmHg Patient to be admitted to progressive care unit for cardiac telemetry monitoring 2. Echocardiogram to evaluate her LV systolic function 3. Event monitor prior to discharge and to follow-up with the [facility] cardiovascular team for continuation of cardiac care plan and also to evaluate for possible underlying sick sinus syndrome. (2) Sterilization: (3) Adult BMI 40.0-44.9 kg/sq m: HPI Consult Data Date of Consult: 11/21/20 [facility] Medical History (Updated 11/21/20 @ 13:33 by Maeve BALL, PA) Depression Headache Infertility Migraine headache Non-smoker Sinus bradycardia Wears glasses Home Medications [id number] [] 1 tab PO DAILY 10/23/20 [History Last Taken 10/22/20] sertraline [Zoloft] 50 mg PO DAILY 11/18/20 [History Last Taken 11/21/20] Allergy/AdvReac Type Severity Reaction Status Date / Time codeine AdvReac Nausea/Vom/ Verified 11/21/20 09:51 Diarrhea Surgical History Hx laparoscopic cholecystectomy Hx of tonsillectomy Previous section Social History Smoking Status: Never smoker Physical Exam Narrative Physical examination desk monitor at bedside showed improvement of the heart rhythm to sinus bradycardia still heart rate of 46 Oxygen saturation within normal Cardiovascular examination S1-S2 is regular, there is no systolic or diastolic murmur, there is no pericardial rub or gallop present Chest examination clear to auscultation bilaterally. Examination abdomen soft Examination of central nervous system no focal neurological deficit Examination lower extremity no clubbing no cyanosis no lower extremity edema pedal pulses including dorsalis pedis posterior tibial were palpable. Review of the electrocardiogram showed sinus bradycardia. With a heart rate of 31 bpm. Charges/Coding Visit Charges Office Visits / Consults: [id number] IP Consult L4 Objective Data Sinus bradycardia with improvement of heart rate from 30 bpm to 46 bpm. Lab / Micro Data Result Diagrams: 11/21/20 09:36
--- NOTE | 2020-11-21 15:55 | PCS.PANDOC ---
PANDEMIC DOCUMENTATION INITIATED: Date: 11/18/2020 Time: 190
--- NOTE | 2020-11-21 21:44 | NURSING ---
[facility] received a notification for this patient. Called and spoke to her RN, Bree. Patient does not need support or assistance at this time. Encouraged RN to call our department at [phone] ([phone]) if patient needs an IBCLC
[2020-11-22 03:00] VITALS: PULSE 34
[2020-11-22 03:31] VITALS: BP 121/79; PULSE 45; RESP 14; TEMP 36.3; O2SAT 96
[2020-11-22] MEDS: Acetaminophen 325 MG Tablet 650 MG PO (06:18)
[2020-11-22 07:23] VITALS: PULSE 38
[2020-11-22 08:56] VITALS: BP 119/79; PULSE 41; RESP 16; TEMP 36.6; O2SAT 94
[2020-11-22] MEDS: Sertraline 50 MG Tablet PO (09:06)
[2020-11-22] MEDS: Enoxaparin 40 MG/0.4 ML Syringe SC (09:06)
--- NOTE | 2020-11-22 10:45 | PN_ITS ---
Progress Note Patient c/o mild lower abdominal and incisional pain. Denies palpitations, SOB, dizziness. Mild lightheadedness when stands, but thinks that is more from surgery than from cardiac issue. No nausea/vomiting. Physical Exam Narrative abd- soft, nondistended, appropriate tenderness. Incisions clean, dry and intact Const alert and no apparent distress General Appearance: cooperative Assessment & Plan Assessment/Plan (1) Post-operative state: PLAN: POD #1 s/p laparoscopic bilateral salpingectomy for sterilization. Doing well. Ready for d/c from surgery standpoint. D/c instructions entered. (2) Bradycardia: PLAN: Management per cardiology. Ok to Discharge home when ok w/ car diology. Cardiology can addend my discharge instructions to add any additional follow up instructions.
--- NOTE | 2020-11-22 11:29 | PN.CARD_ITS ---
Subjective Subjective Pt is sitting in bed. She notes that she feels off when sitting up, almost lightheaded but does not feel like she will pass out. Objective Data Vital Signs: Vital Signs Temp Pulse Resp BP Pulse Ox 97.9 F 41 L 16 119/79 94 11/22/20 08:56 11/22/20 08:56 11/22/20 08:56 11/22/20 08:56 11/22/20 08:56 Oxygen Flow Rate (L/min) 2 Oxygen Delivery Method Room Air Weight: 247 lb 12.793 oz Body Mass Index (BMI) 42.7 Intake & Output: Intake and Output for Last 24 Hours 11/20/20 11/21/20 11/22/20 23:59 23:59 23:59 Intake Total 1145 / 1145 540 / 540 Output Total 75 / 75 Balance 1070 / 1070 540 / 540 Lab / Micro Data Result Diagrams: 11/21/20 09:36 Cardiology Labs/Tests Rhythm: SB ECHO: 11/21/2020 The estimated ejection fraction is EF 55 %. Normal LV systolic function Radiography Diagnostic Testing: Radiology Impression Echocardiogram 11/21/20 11:50 Interpretation Summary The estimated ejection fraction is EF 55 %. Normal LV systolic function Ordering Physician: Livia Feliz Referring Physician: Kayla Arroyo Performed By: Margarita Mohamud, SAM, RVT Physical Exam Const alert, oriented x3, no apparent distress, average body habitus and healthy appearing Eyes PERRL, EOMs intact bilaterally, conjunctivae normal, no scleral icterus and normal visual ruiz by confrontation Neck full ROM, no lymphadenopathy, supple and no JVD Resp normal respiratory effort, no use of accessory muscles and clear to auscultation bilaterally Cardio regular rhythm, S1 normal heart sound, S2 normal heart sound, no murmurs, no rub, no gallops, no clicks, no JVD and peripheral pulses 2+ throughout Rate: bradycardia GI normal to inspection, nondistended, normoactive bowel sounds, soft to palpation, non-tender and non-distended Neuro oriented x3, CN's II-XII intact bilaterally, moves all extremities, no focal motor deficits and no sensory deficits noted Assessment & Plan Assessment/Plan (1) Sinus bradycardia: PLAN: * Echo is normal * Rhythm remains with sinus laura * HR does increase with movement * bradycardiac could be related to a vasovagal response from surgery * would like to obtain a 48 HM at d/c and follow up in the office
--- NOTE | 2020-11-22 11:35 | PHA.DC.MR ---
Pharmacy Service has performed discharge medication reconciliation for this patient. No new medications at time of discharge review. Medications reviewed are from previously reported home medications. Home Medications [id number] [] 1 tab PO DAILY 10/23/20 sertraline [Zoloft] 50 mg PO DAILY 11/18/20 The patient's discharge medication list was reviewed for discrepancies and discrepancies were resolved.
[2020-11-22 13:12] VITALS: BP 122/89; PULSE 51; RESP 12; TEMP 36.7; O2SAT 95
== END 2020-11-22 13:27 | disposition home or self-care (01) ==
LOC: SDC 13:26 → PCU 13:27
PROVIDERS: Admitting Provider Obstetrics & Gynecology; Referring Provider Obstetrics & Gynecology; Visit Provider Obstetrics & Gynecology
PROC: (CPT 58661; principal; 2020-11-21 10:15)
DX: Z30.2 Encounter for sterilization (principal); Z79.899 Other long term (current) drug therapy; F32.9 Major depressive disorder, single episode, unspecified; R00.1 Bradycardia, unspecified
CPT/HCPCS: 00840; 58661; 81025; 85027; 88302; 93005; 93306; 96360; 96361; 96372; 99218; J7120; G0378; J2405

== ENCOUNTER → 2020-11-26 12:57 | Outpatient (CLI) | payer OTHER, SELFPAY | PROVIDERS: Referring Provider Physician Assistant Medical; Visit Provider Physician Assistant Medical | DX: R00.1 Bradycardia, unspecified (principal) | CPT/HCPCS: 93225; 93226 ==

== ENCOUNTER 2023-02-27 16:33 | Emergency (ER) | payer OTHER, SELFPAY ==
[2023-02-27 16:34] VITALS: BP 164/106; PULSE 78; RESP 18; TEMP 36.6; O2SAT 96; BMI 47.8
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
--- NOTE | 2023-02-27 17:00 | RAD_ITS ---
EXAM: XR NASAL BONES, 3 OR MORE VIEWS CLINICAL INDICATION: nasal trauma TECHNIQUE: Frontal and lateral views of the nasal bones. COMPARISON: No relevant prior studies available. FINDINGS: BONES/JOINTS: Unremarkable. No fracture. No sclerotic or destructive changes observed. SOFT TISSUES: Unremarkable. No soft tissue swelling or gas. No radiopaque foreign body. RAD/Nasal Bones min 3 Views IMPRESSION: No fracture. Electronically Signed: Ezra Mcmullen MD at 17:33 EST ,
[2023-02-27 18:05] VITALS: BP 157/92; PULSE 78; RESP 18; O2SAT 95
== END 2023-02-27 18:05 | disposition home or self-care (01) ==
PROVIDERS: Emergency Provider Student in an Organized Health Care Education/Training Program; Visit Provider Student in an Organized Health Care Education/Training Program
DX: S00.33XA Contusion of nose, initial encounter (principal); J34.2 Deviated nasal septum; X58.XXXA Exposure to other specified factors, initial encounter; Z97.3 Presence of spectacles and contact lenses
CPT/HCPCS: 70160; 99283

== ENCOUNTER → 2023-07-26 | Outpatient (CLI) | payer OTHER, SELFPAY ==
[2023-07-26 09:26] LABS: Absolute Lymphocyte Count 2.65 X10^3/uL (0.83-4.51); Absolute Neutrophil Count 4.5 X10^3/uL (2.0-7.7); Basophil# 0.05 X10^3/uL; Basophil% 0.6 % (0-1); Eosinophil# 0.79 X10^3/uL; Eosinophils% 9.2 % (0-5); Hematocrit 39.3 % (37-47); Hemoglobin 12.8 g/dL (12.0-15.0); Lymphocyte # 2.65 X10^3/ul (0.83-4.51); Lymphocyte % 30.9 % (19-41); Mean Corp Hgb Conc 32.6 g/dL (32-36); Mean Corpuscular Hgb 29.8 pg (27.0-32.0); Mean Corpuscular Volume 91.6 fL (81-99); Mean Platelet Vol. 10.8 fl (6.2-12.0); Monocyte# 0.55 X10^3/uL; Monocyte% 6.4 % (0-10); NRBC Flagged by Analyzer 0 % (0-5); Neutrophil % 52.5 % (47-70); Platelet Count 284 K/mm3 (150-450); RBC Distribution Width CV 12.8 % (11.6-14.6); RBC Distribution Width SD 42.5 fl (35.1-43.9); Red Blood Count 4.29 M/mm3 (4.2-5.4); White Blood Count 8.6 K/mm3 (4.4-11.0)
[2023-07-26 09:52] LABS: Vitamin B12 455 pg/mL (211-911); Vitamin D,25 Hydroxy 11.6 ng/mL
[2023-07-26 10:26] LABS: ALB/GLOB Ratio 0.9 RATIO (0.9-2.4); AST(SGOT) 20 U/L (15-37); Alanine Aminotransfer ALT/SGPT 35 U/L (13-56); Albumin, Serum 3.6 g/dL (3.2-5.0); Alkaline Phosphatase 83 U/L (45-117); Anion Gap 3 (5-15); BUN 10 mg/dL (7-18); BUN/Creat Ratio 13.9 RATIO (10-20); Chloride 109 mmol/L (98-107); Cholesterol 216 mg/dL (200); Creatinine, Serum 0.72 mg/dL (0.55-1.02); EST Glomerular Filtration Rate 97 mL/min (>60); Est Glom Filt Rate - Afr Amer 118 mL/min (>60); Ferritin 45 ng/mL (8-252); Globulin 3.8 g/dL (2.2-4.2); Glucose 96 mg/dL (74-106); High Density Lipoprotein 60 mg/dL; Iron 67 ug/dL (50-170); Potassium 4.5 mmol/L (3.5-5.1); Protein, Total 7.4 g/dL (6.4-8.2); Sodium Level 138 mmol/L (136-145); T4 Free Direct 0.89 ng/dL (0.76-1.46); Triglycerides 119 mg/dL; Very Low Density Lipoprotein 24 mg/dL (5-40)
== END | disposition home or self-care (01) ==
LOC: LAB 08:33
PROVIDERS: PCP Nurse Practitioner Family; Referring Provider Nurse Practitioner Family; Visit Provider Nurse Practitioner Family
DX: Z00.01 Encounter for general adult medical examination with abnormal findings (principal); R53.83 Other fatigue; E28.2 Polycystic ovarian syndrome; I10 Essential (primary) hypertension
CPT/HCPCS: 36415; 80053; 80061; 82306; 82607; 82728; 83540; 84439; 84443; 85025